=== PATIENT | male | born 1985 | race Caucasian/White ===

== ENCOUNTER 2024-04-20 23:22 | Inpatient (IN) | payer OTHER, SELFPAY ==
[2024-04-20 19:39] VITALS: BP 168/112
[2024-04-20 21:52] LABS: % Basophils 0.2 % (0-2); % Immature Granulocytes 0.5 % (0-0.5); % Lymphocytes 5.6 % (20.5-51.1); % Monocytes 6.5 % (1.7-9.3); % Neutrophils 87.2 % (42.2-75.2); Absolute Immature Granulocytes 0.1 10^3/uL (0-0.05); Absolute Lymphocytes 0.7 10^3/uL (1.2-3.4); Absolute Monocytes 0.8 10^3/uL (0.1-0.6); Absolute Neutrophils 11.1 10^3/uL (1.4-6.5); Hematocrit 40.3 % (39.0-52.0); Hemoglobin 13.8 g/dL (13.0-18.0); Mean Corp Hgb Conc. 34.2 g/dL (33.0-37.0); Mean Corpuscular Hgb 29.7 pg (27.0-31.0); Mean Corpuscular Volume 86.7 fL (80.0-94.0); Mean Platelet Volume 10.5 fL (7.4-10.4); Nucleated Red Blood Cells % 0 % (-); Platelet Count 183 10^3/uL (130-400); Red Blood Cell Count 4.65 10^6/uL (4.70-6.10); Red Cell Dist. Width 13.4 % (11.5-14.5); White Blood Cell Count 12.7 10^3/uL (4.8-10.8)
[2024-04-20] MEDS: VALIUM INJECTION 5 MG IV (21:59)
[2024-04-20 22:13] LABS: Blood Urea Nitrogen 19 mg/dl (9-20); Calcium 10.1 mg/dl (8.4-10.2); Carbon Dioxide 17 mmol/L (22-30); Chloride 108 mmol/L (98-107); Glucose 114 mg/dl (70-99); Sodium 137 mmol/L (135-145); eGFR > 60.00
[2024-04-20] MEDS: TYLENOL 1000 MG PO (22:17)
--- NOTE | 2024-04-20 22:24 | ED.GENMED ---
History of Present Illness
General
Chief Complaint: Flank Pain
Source: patient
Exam Limitations: none
Time Seen by Provider: 04/20/24 20:03
Nursing documentation reviewed up to this point in time: agreed with
Travel History
Have you had any contact with someone who has COVID-19?: No
Do you have any symptoms of coronavirus? Fever > 100 degrees, chills, cough, shortness of breath, sore throat, loss of taste or smell, muscle aches, or headache?: No
History of Present Illness
History of Present Illness:
Patient is a 38-year-old male who presents to the emergency department for increasing lower abdominal, bilateral flank and back pain after being unable to urinate since noon time. Patient denies any previous history of similar episodes. Patient
has some nausea but no vomiting or diarrhea. Patient denies fever or chills. Patient denies any recent illnesses or injuries. Patient states that he has nocturia x 2 but no hesitancy. Patient denies any hematuria or dysuria. Patient denies any
previous history of similar episodes. Patient denies any new medications.
Past History
Past History
ED Past Medical History: GERD and HTN
ED Past Surgical History: Orthopedic and Other (Umbilical hernia repair)
Social History
Tobacco: Non-smoker
Alcohol: None
Drug: None
Review of Systems
Review of Systems
All Other Systems: ROS reviewed and negative except as documented in HPI and ROS
Constitutional: Denies fever or chills
EENT: Reports no symptoms
Respiratory: Reports no symptoms
Cardiac: Reports no symptoms
ABD/GI: Reports abdominal pain; Denies nausea, vomiting, diarrhea or constipated
: Reports flank pain, difficulty voiding and urgency; Denies dysuria or bleeding
Musculoskeletal: Reports back pain
Skin: Reports no symptoms
Neurological: Reports no symptoms
Hematologic/Lymphatic: Reports no symptoms
Phy Exam
Physical Exam
Physical Exam:
Physical Exam
General: significant distress, alert and appropriate, obese, well hydrated
HENT: Normocephalic, supple with no lymphadenopathy, no thyromegaly
Eyes: Clear sclera, conjuctiva without injection
Heart: Regular rhythm and rate. No S3, S4. No murmur.
Lungs: No respiratory distress, no stridor, lung sounds clear and equal bilaterally
Abdomen: Soft, mild to moderate lower abdominal tenderness without guarding or rebound, BS good. Patient with a circumcised penis without lesion. Testicles down bilaterally
Neuro: Alert and oriented x 3, CN II - XII intact, no motor focality, no cerebellar dysfunction
Skin: no rash
Psychiatric: well kept. interactive and cooperative
Extremities: No edema, cyanosis, tenderness
Course
Orders/Labs/Results
Orders:
Orders
04/20/24 20:46
Lidocaine 2% [Lidocaine Uro-Jet 2%] 1 syringe .ROUTE .STK-MED ONE
04/20/24 21:21
Basic Metabolic Panel Urgent
Complete Blood Count/With Diff Urgent
Lactic Acid Q4H
Comment: CANCEL 2nd LACTIC ACID IF 1st LACTIC ACID IS LESS THAN 2
Blood Culture Q30M
AMARILYS Source: Blood/Venous
Specimen Description:
Blood Culture Q30M
AMARILYS Source: Blood/Venous
Specimen Description:
04/20/24 21:51
diazePAM [Valium Injection] 5 mg IV NOW STA
04/20/24 22:02
Acetaminophen [Tylenol] 1,000 mg .ROUTE .STK-MED ONE
04/20/24 22:16
Acetaminophen [Tylenol] 1,000 mg PO NOW STA
04/20/24 22:19
CMP [Comprehensive Metabolic Panel] Urgent
04/20/24 22:20
CefTRIAXone [Rocephin] 1,000 mg IV NOW STA
04/20/24 22:29
Consult Urology [UROLOGY CONSULT] Urgent
Consulting Provider: Eliceo Quispe
Was physician already notified: Yes
Comment: Bladder outlet obstruction
04/20/24 23:00
Flush (0.9% Sodium Chloride) [Flush (Nss)] See Dose Instructions IV PER PROTOCOL
04/20/24 23:07
Admit/Transfer Patient As Directed
Co-Sign Provider:
Level of Care: Inpatient admission
Assign to:: Medical/Surgical
Physician / Group: Hospitalist
Diagnosis: Bladder obstruction
Reason for Hospitalization: Bladder obstruction
Expected length of stay greater than two midnights?: Yes
ELOS- Estimated Length of Stay in days: 3
I certify the patient meets the requirements for IP care: Yes
04/20/24 23:08
Code Status As Directed
Resuscitation Status: Full Code
04/20/24 23:10
diazePAM [Valium Injection] 5 mg IV Q6HPRN PRN
04/20/24 23:15
Tamsulosin [Flomax] 0.4 mg PO DAILY
04/21/24 00:45
Activity As Directed
Activity Level: Ambulate
Pneumatic Compression Sleeves As Directed
Type: Knee high
Vital Signs As Directed
Frequency: Per unit guidelines
DX Deep Vein Thrombosis Video Routine
04/21/24 01:46
Lactic Acid Q4H
Comment: CANCEL 2nd LACTIC ACID IF 1st LACTIC ACID IS LESS THAN 2
04/21/24 05:46
Basic Metabolic Panel IN AM
Complete Blood Count/No Diff IN AM
04/21/24 Breakfast
NPO
Allow oral meds: Yes
Allow clear liquids: Sips of Clears
NPO with Ice Chips: Yes
NPO for procedure after (time): midnight
04/21/24 08:00
Atorvastatin [Lipitor] 20 mg PO DAILY
Dexamethasone [Decadron] 4 mg PO DAILY
Lisinopril [Zestril] 10 mg PO DAILY
Pantoprazole [Protonix] 40 mg PO DAILY
Abnormal Lab Results
04/20/24 04/20/24
21:21 22:19
WBC 12.7 H 10^3/uL
(4.8-10.8)
RBC 4.65 L 10^6/uL
(4.70-6.10)
MPV 10.5 H fL
(7.4-10.4)
Abs Immat Gran (auto) 0.1 H 10^3/uL
(0-0.05)
Absolute Neuts (auto) 11.1 H 10^3/uL
(1.4-6.5)
Absolute Lymphs (auto) 0.7 L 10^3/uL
(1.2-3.4)
Absolute Monos (auto) 0.8 H 10^3/uL
(0.1-0.6)
Neutrophils % 87.2 H %
(42.2-75.2)
Lymphocytes % 5.6 L %
(20.5-51.1)
Chloride 108 H mmol/L
(98-107)
Carbon Dioxide 17 L mmol/L 17 L mmol/L
(22-30) (22-30)
Glucose 114 H mg/dl 124 H mg/dl
(70-99) (70-99)
Lactic Acid 6.2 H* mmol/L
(0.7-2.0)
04/20/24 21:21
04/20/24 22:19
Vital Signs
Initial and Last Documented VS:
Initial Vital Signs
Temp Pulse Resp BP Pulse Ox
100.1 F 132 19 168/112 97
04/20/24 19:39 04/20/24 19:39 04/20/24 19:39 04/20/24 19:39 04/20/24 19:39
Last Documented Vital Signs
Temp Pulse Resp BP Pulse Ox
98.9 F 120 22 121/97 99
04/21/24 12:07 04/21/24 12:07 04/21/24 12:07 04/21/24 12:07 04/21/24 12:07
*Pulse Oximetry
Patient hypoxic: no
*EKG
Interpreted by ED Provider?: NA
*Inspector Barrel Interpretation
Rate: Inspector Barrel- N/A
*Critical Care Note
Total Time (30-74mins, 75-104mins- exclusive of procedures): Not Applicable
Update Note
Update Note:
Multiple attempts to try to pass the catheter whether to do a cuday or with a guide or just a plain catheter followed by trying to use filiforms was unsuccessful. Patient did have significant bleeding from the urethra and was passing some urine.
Patient had this done under sterile conditions. Patient did have some spontaneous urination. However still symptomatic. Patient then developed chills and rigors with a temp of 101. Patient was placed on antibiotics. Urology was consulted.
ED Attending Note
-
Portions of this chart may have been created with voice recognition software.� Occasional wrong word or��sound alike� substitutions may have occurred due to the inherent limitations of voice recognition software.
Discharge Plan
Departure
Patient Disposition: Admit
Date of Disposition: 04/20/24
Time of Disposition: 22:32
Admit to: Med/Surg
Admit to doctor: Hospitalist
Presentation/result/management discussed w/ accepting MD/DO: Urology
Patient with high blood pressure during this ER visit?: Yes
Condition: Serious
Covid-19: Not Applicable
Discharge Problem:
Fever and chills, Bladder outlet obstruction, Hematuria
Interventions
Interventions:
*Risk Screen - Suicide Last Done: 04/20/24 19:39
*General Assessment Last Done: 04/20/24 19:39
*Neglect/Abuse Screening Last Done: 04/20/24 19:39
ED- Fall Risk Assessment Last Done: 04/20/24 21:27
*ED COVID-19 Vaccine History Last Done: 04/20/24 19:39
*Nursing Disposition Last Done: 04/21/24 00:41
RV-Kyarym-Udvaepmphh Assessment Last Done: 04/20/24 23:29
ED-Male Genitourinary Assessment Last Done: 04/20/24 23:30
Discharge Date and Time
Discharge Date/Time: 04/21/24 00:42
[2024-04-20 22:55] LABS: ALT (SGPT) 31 U/L (0-50); AST (SGOT) 27 U/L (17-59); Albumin 4.8 g/dl (3.5-5.0); Alkaline Phosphatase 101 U/L (38-126); Blood Urea Nitrogen 19 mg/dl (9-20); Calcium 10.2 mg/dl (8.4-10.2); Carbon Dioxide 17 mmol/L (22-30); Chloride 104 mmol/L (98-107); Glucose 124 mg/dl (70-99); Potassium 4.6 mmol/L (3.5-5.1); Sodium 140 mmol/L (135-145); Total Bilirubin 0.7 mg/dl (0.2-1.3); Total Protein 8.1 g/dl (6.3-8.2); eGFR > 60.00
--- NOTE | 2024-04-20 22:56 | W.PN.URO.CBU ---
Today's Communication / Plan
-
Attempted passage of a ureteral guidewire in the hopes of placing a Councill catheter
Guidewire would not navigate a course into the urinary bladder
Based on the suspected urethral trauma and the fact that he was able to void, no further attempts at catheter placement were made at the bedside
Assessment / Plan
-
Urine retention: patient voided volitionally since ER attempts at Garrett placement
Possible acute bacterial prostatitis
Possible urethral stricture disease
Diagnosis
-
Date of Service: April 20, 2024
-
Patient Diagnosis:
Urine retention
Dysuria x 4-6 weeks
---
Patient presented to the ER this evening with c/o the inability to urinate for roughly 7-8 hours: he was bladder scanned for a volume of 800 ml
He has never before suffered from the inability to void
He does mention that for the past 4-6 weeks he has had dysuria
No fever
No chills
No gross hematuria
His past urologic history is essentially unremarkable
---
Attempt at Garrett catheter placement by the emergency room staff included Coude catheter, catheter guide and filiforms and followers
Unfortunately these attempts were unsuccessful
Fortunately he was just able to void volitionally with a good stream and feels he completely emptied his bladder
Subjective
-
Dysuria
Objective
-
Vital Signs
Temp Pulse Resp BP Pulse Ox
101.4 F H 132 19 168/112 97
04/20/24 22:20 04/20/24 19:39 04/20/24 19:39 04/20/24 19:39 04/20/24 19:39
Laboratory Results
04/20/24 21:21
04/20/24 22:19
Review of Systems
-
Constitutional: No Symptoms
Respiratory: No Symptoms
Cardiac: No Symptoms
Abdomen/GI: No Symptoms
: Dysuria and Difficulty Voiding
Neurological: No Symptoms
Physical Exam
-
Abdomen - soft, non-tender, no SP pain or fullness, bladder non-palpable
Genitalia - normal with gross blood per meatus
Skin - warm & dry with no rash
Neuro - AOx3, no motor deficits
Counseling
-
Patient will be admitted to Med/Surg
He will be maintained on diazepam 5mg IV Q 6 ours
He will be begun on tamsulosin 0.4mg daily
He will be NPO after MN tonight in the event he needs surgical intervention/cystoscopy
---
Discussed with Hospitalist
--- NOTE | 2024-04-20 22:59 | HPS.HSE ---
Family Physician
-
Family Physician: Sahil Downs
Chief Complaint
-
Inability to urinate
History of Present Illness
38-year-old man comes in with increasing lower abdominal, bilateral flank and back pain after being unable to urinate since noon time. He denies any previous history of similar episodes. He has some nausea but no vomiting or diarrhea, no fever or
chills, no recent illnesses or injuries. He states that he has nocturia x 2 but no hesitancy. He denies any hematuria or dysuria. At the time of my interview, he had just urinated 700 cc after attempts at placing a lal. Unfortunately he also
had a new fever and rigors. No h/o anabolic steroid use.
Medical History
Past Medical History
Past Medical History: Reports Other
Additional Past Medical History:
GERD
essential HTN
Umbilical hernia repair
Past Surgical History: Reports Other
Additional Past Surgical History:
See above
Social History
Tobacco: Non-smoker
Alcohol: None
Drug: None
Family History
Family History: Not pertinent
Allergies / Home Medications
Allergies reflects when Allergies were last updated in [facility].
Home Medications with original date entered in [facility]
Allergy/Medication List:
Allergies
Allergy/AdvReac Type Severity Reaction Status Date / Time
sumatriptan [From Imitrex] AdvReac Chest pain Verified 04/20/24 19:39
Home Medications
lisinopril 10 mg tablet (Zestril) 10 mg PO DAILY Blood pressure 05/15/22
omeprazole 40 mg capsule,delayed release 40 mg PO DAILY Gastrointestinal issue 05/15/22
atorvastatin 20 mg tablet 20 mg PO DAILY High cholesterol 06/09/22
dexamethasone 4 mg tablet (Decadron) 4 mg PO DAILY Anti-inflammatory 06/09/22
Review of Systems
-
History Source: Patient
A 12 point ROS was completed and negative except as noted: Yes
Physical Exam
Vital Signs
Vital Signs
Temp Pulse Resp BP Pulse Ox
101.4 F H 132 19 168/112 97
04/20/24 22:20 04/20/24 19:39 04/20/24 19:39 04/20/24 19:39 04/20/24 19:39
Physical Exam
General: Well Developed, Well Nourished and Comfortable
HEENT: No Ptosis, Nose Appears Normal and Ears Appear Normal
Respiratory: Clear
Cardiac: S1/S2 and Regular Rhythm
GI: Soft, Non Tender and Non Distended
Musculoskeletal: No Clubbing, No Cyanosis and No Edema
Skin: Warm and Dry; No Rash or Jaundice
Psych: Calm
Laboratory Results
-
04/20/24 21:21
04/20/24 22:19
Laboratory Results
Total Bilirubin 0.7 mg/dl (0.2-1.3) 04/20/24 22:19
AST 27 U/L (17-59) 04/20/24 22:19
ALT 31 U/L (0-50) 04/20/24 22:19
Alkaline Phosphatase 101 U/L (38-126) 04/20/24 22:19
Data Reviewed
-
Lab Data: Labs Reviewed by me
Impression/Plan
-
IMPRESSION:
38 man with inability to urinate, likely from a bladder obstruction, now with fever and WBC increase.
PLAN:
1. Bladder obstruction - urology consult appreciated (please see urology note)
Overnight patient will continue with
Valium
Flomax
IV antibiotics
Urology to re-eval in am and see if further interventions needed
2. Continue treatment for HTN and GERD
Full code
VCD for DVTp
[2024-04-20 23:03] LABS: Lactic Acid 6.2 mmol/L (0.7-2.0)
[2024-04-20] MEDS: ROCEPHIN 1000 MG IV (23:13)
[2024-04-20 23:27] VITALS: BP 134/60
[2024-04-20] MEDS: FLOMAX 0.400000000000000022 MG PO (23:57)
[2024-04-21] VITALS (12 sets, daily range): BP systolic 78–121; BP diastolic 42–97; BMI 44.9
[2024-04-21 01:09] LABS: Glucose - Point of Care 119 mg/dl (70-99)
[2024-04-21] MEDS: NSS 500 IV (01:14)
--- NOTE | 2024-04-21 01:15 | W.PN.UPDATE ---
Update Note
Progress Note Update
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 Patient had received Valium 5mg and Flomax 0.4mg, Will order 500 CC I V bolus, NSS 100cc/hr, Lactic acid AM.
update BP 95/49 101
[2024-04-21 02:14] LABS: Lactic Acid 4.9 mmol/L (0.7-2.0)
[2024-04-21] MEDS: NSS 1000 IV ×4 (02:23→20:28)
--- NOTE | 2024-04-21 02:30 | PTCARENOTE ---
Patient arrived on unit @0040 via stretcher from ED, ambulate to bed with RW with standby assist due to c/o weakness. Patient AAOX3, denies any pain, c/o lightheadedness and observed to be diaphoretic. Manual BP 78/44 HR 113, BS 119, afebrile. CYTOLOGY MANAGER
made aware, new order received for bolus 500 mls followed by maintenance fluids. BP after 500 ml bolus is 95/49 HR 101, patient has no further complaints, will continue to follow plan of care.
[2024-04-21 06:58] LABS: Hematocrit 32.9 % (39.0-52.0); Hemoglobin 11.4 g/dL (13.0-18.0); Mean Corp Hgb Conc. 34.7 g/dL (33.0-37.0); Mean Corpuscular Hgb 30.3 pg (27.0-31.0); Mean Corpuscular Volume 87.5 fL (80.0-94.0); Mean Platelet Volume 11.5 fL (7.4-10.4); Platelet Count 145 10^3/uL (130-400); Red Blood Cell Count 3.76 10^6/uL (4.70-6.10); Red Cell Dist. Width 13.9 % (11.5-14.5); White Blood Cell Count 11.8 10^3/uL (4.8-10.8)
[2024-04-21 07:13] LABS: Blood Urea Nitrogen 25 mg/dl (9-20); Calcium 9.1 mg/dl (8.4-10.2); Carbon Dioxide 17 mmol/L (22-30); Chloride 105 mmol/L (98-107); Estimated Creatinine Clearance 78 ml/min; Glucose 90 mg/dl (70-99); Potassium 4.3 mmol/L (3.5-5.1); Sodium 139 mmol/L (135-145); eGFR 46.02
[2024-04-21] MEDS: PROTONIX PO (08:04)
[2024-04-21] MEDS: LIPITOR 20 MG PO (08:07)
[2024-04-21] MEDS: FLOMAX 0.400000000000000022 MG PO (08:07)
[2024-04-21 08:11] LABS: Lactic Acid 4.5 mmol/L (0.7-2.0)
--- NOTE | 2024-04-21 09:40 | W.PN.HOSP.TC ---
Today's Communication/Plan
-
.
Assessment / Plan
Assessment / Plan
Physical Exam
General: Well Developed, Well Nourished and Comfortable
HEENT: No Ptosis, Nose Appears Normal and Ears Appear Normal
Respiratory: Clear
Cardiac: S1/S2 and Regular Rhythm
GI: Soft, Non Tender and Non Distended. Mild left CV tenderness.
Musculoskeletal: No Clubbing, No Cyanosis and No Edema
Skin: Warm and Dry; No Rash or Jaundice
Psych: Calm
38 man with inability to urinate,
# Septic shock/ severe sepsis with lactic acidosis
Source UTI, suspect pyelonephritis
Stat IV bolus of IVF
Change IV Abx to IV cefepime
c/w IVF
Order stat renal US, will d/w radiologist whether to do US or CT urogram as safe and better
d/w urologist, c/w Flomax, ABx for now
Await blood cultures
Maintain tele. Hold MINOO
Send for urinalysis and culture( stat)
Appreciate urology help
# Primary hTN
Hold MINOO due to hypotension
# PRASANTH
suspect related to sepsis, hypotension,
DO Renal US or CT ( await radiologist to call back)
Bladder scan is ordered
Send for urine testing,
c/w IVF
Monitor BMP
# Obesity
BMP 44
# History of ITP. Monitor plts level
He has hematuria
#History of GERD
#DVT prophylaxis
Total critical time spent to see the patient, examine the patient on the floor, review data and lab results, discuss treatment plan with patient, consultants nursing staff around 75 minutes
Anticipated Discharge: > 48 hours
Subjective/Interval History
-
Date of Service: April 21, 2024
No flank pain but reports hematuria
Objective Data
-
Labs:
Laboratory Results
04/20/24 04/20/24 04/20/24
21:21 21:49 22:19
WBC 12.7 H
Hgb 13.8
Hct 40.3
Plt Count 183
Sodium 137 Cancelled 140
Potassium Cancelled 4.6
Chloride 108 H Cancelled 104
Carbon Dioxide 17 L Cancelled 17 L
BUN 19 Cancelled 19
Creatinine 0.9 Cancelled 1.2
Glucose 114 H Cancelled 124 H
Calcium 10.1 Cancelled 10.2
Total Bilirubin Cancelled 0.7
AST Cancelled 27
ALT Cancelled 31
Alkaline Phosphatase Cancelled 101
04/21/24
05:46
WBC 11.8 H
Hgb 11.4 L
Hct 32.9 L
Plt Count 145 D
Sodium 139
Potassium 4.3
Chloride 105
Carbon Dioxide 17 L
BUN 25 H
Creatinine 1.9 H
Glucose 90
Calcium 9.1
Total Bilirubin
AST
ALT
Alkaline Phosphatase
Vital Signs:
Vital Signs
Temp Pulse Resp BP Pulse Ox
97.8 F 115 16 85/45 94
04/21/24 07:00 04/21/24 08:01 04/21/24 07:00 04/21/24 08:01 04/21/24 07:00
I&O
04/20/24 04/21/24 04/22/24
06:59 06:59 06:59
Intake Total 925 / 925
Output Total 180 / 180
Balance 745 / 745
--- NOTE | 2024-04-21 10:00 | PTCARENOTE ---
Pt had bp of 85/45 this am. RN reached out to hospitalist through tiger text about holding am lisinopril and obtained order for 1,000 ml NS bolus.
--- NOTE | 2024-04-21 10:28 | W.PN.URO.CBU ---
Today's Communication / Plan
-
Continue IV antibiotics
Await blood and urine culture results
Bladder scan to confirm adequate bladder emptying
Assessment / Plan
-
Urine retention: patient continues to void volitionally
Possible acute bacterial prostatitis
Possible urethral stricture disease
Diagnosis
-
Date of Service: April 21, 2024
-
Patient Diagnosis:
Urine retention
Dysuria x 4-6 weeks
---
Patient presented to the ER this 04/20/24 with c/o the inability to urinate for roughly 7-8 hours: he was bladder scanned for a volume of 800 ml
He has never before suffered from the inability to void
He does mention that for the past 4-6 weeks he has had dysuria
No fever
No chills
No gross hematuria
His past urologic history is essentially unremarkable
---
Attempt at Garrett catheter placement by the emergency room staff included Coude catheter, catheter guide and filiforms and followers
Unfortunately these attempts were unsuccessful
Fortunately he was just able to void volitionally with a good stream and feels he completely emptied his bladder
He has continued to void effectively since then, with decreasing dysuria and hematuria
Subjective
-
No SP pain or pressure
Dysuria resolving
Objective
-
Vital Signs
Temp Pulse Resp BP Pulse Ox
97.8 F 102 16 108/56 94
04/21/24 07:00 04/21/24 10:19 04/21/24 07:00 04/21/24 10:19 04/21/24 07:00
Intake and Output
04/20/24 04/21/24 04/22/24
06:59 06:59 06:59
Intake Total 925 / 925
Output Total 180 / 180
Balance 745 / 745
Intake:
IV fluids (Total) 925 / 925
Output:
Urine, Voided 180 / 180
Laboratory Results
04/21/24 05:46
04/21/24 05:46
Review of Systems
-
Constitutional: No Symptoms
Respiratory: No Symptoms
Cardiac: No Symptoms
Abdomen/GI: No Symptoms
: Dysuria and Bleeding
Neurological: No Symptoms
Physical Exam
-
General - well nourished, no acute distress
Abdomen - soft, non-tender, no CVAT
Genitalia - normal
Counseling
-
Bladder scan
Repeat BMP in AM 04/22/24
[2024-04-21 12:26] LABS: Urine Albumin 3+ (Neg - Trace); Urine Bilirubin Negative (Negative); Urine Character Bloody (Clear); Urine Color Red; Urine Glucose Negative (Negative); Urine Ketone 1+ (Negative); Urine Leukocyte Trace (Negative); Urine Nitrite Negative (Negative); Urine Occult Blood 4+ (Negative); Urine Specific Gravity 1.015 (<1.030); Urine Urobilinogen Negative (Neg - 1+); Urine pH 6.5 (5.0-9.0)
--- NOTE | 2024-04-21 12:59 | PTCARENOTE ---
[facility] text to hospitalist that patient began to visibly shake in bed, he denied pain or 'fever chills'. Staff took his VS- they were HR 120, bp 127/97, RR 18, SpO2 99% on RA. STAT urine culture obtained per order, conveyor monitor applied to
patient, and MD called into room to update patient on progression of sepsis/plan of care. MD also updated pt spouse. Blood cultures positive for gram positive cocci in chains.
[2024-04-21 13:32] LABS: Urine Squamous Cell 0-2 /LPF (Few)
[2024-04-21 13:33] LABS: Urine Bacteria Few (Negative); Urine Red Blood Cell >100 /HPF (0-2)
[2024-04-21] MEDS: STERILE WATER FOR INJECTION 10 ML IV (13:57)
[2024-04-21] MEDS: MAXIPIME 2000 MG IV (13:57)
--- NOTE | 2024-04-21 16:03 | CON.ID ---
Consultation
-
Date/Time Consultation Requested: April 21, 2024 1523
Date/Time Consultation Performed: April 21, 2024 1604
Requesting Provider: Dr. Michelle Escobar
Performing Provider: Dr. Bobbi Bolden
Reason for Consultation: Bacteremia, Aerococcus UTI
Chief Complaint / Past History
Chief Complaint
Unable to void
History of Present Illness
38-year-old male with history of hypertension, who started having dysuria about 2 weeks ago with intermittent fever, pelvic and back pain. However yesterday he was not able to void at all with significant bladder pain radiating to the back. Also
with fevers and chills. He came to the ED. He was febrile 101.4, white count 12.7, lactic acid 6.2. He was tachycardic. Bladder scan showed 800 cc urine. ED attempted to place Garrett for about an hour but failed. He then started voiding on his
own, gross hematuria. He was rigoring in the ED. Urology attempted to place catheter later but also failed. He was started on ceftriaxone in ED. However today's blood cultures are positive for gram-positive cocci in chains, urine culture
Aerococcus. Antibiotic changed to ampicillin. Patient reports no history of UTIs for difficulty with urination. Urology suspected urethral stricture. The bladder pressure and back pain have resolved. He still has dysuria.
Past History
Additional Past Medical History:
Hypertension
Hx ITP s/p Rituxan (2021)
Umbilical hernia repair
Class III obesity BMI 45
Allergy History:
sumatriptan [From Imitrex] Adverse Reaction (Verified 04/20/24 19:39)
Chest pain
Medications Reviewed: Yes
Current Antibiotics:
S/p ceftriaxone
Ampicillin 2gIV q6
Social History
Tobacco: Non-Smoker
Alcohol: None
Drug: None
Employment: Employed ([employer])
Family History
Family History: Not Pertinent
Review of Systems
Review of Systems
General: Fever, Chills and Change in Appetite
HEENT: Negative Sinus Problems, Headache or Pharyngitis
Cardiovascular: Negative Chest Pain or Dyspnea
Respiratory: Negative Dyspnea or Cough
Gasteroenterology: Other (no diarrhea); Negative Nausea or Vomiting
Genital / Urological: Dysuria
Endocrine: Weakness
Skin / Hair / Nails: Negative Rash
Neurological: Negative Headache or Dizziness
All systems: All other systems were reviewed and were negative
Vital Signs
Temp Pulse Resp BP Pulse Ox
99.6 F 112 18 100/54 98
04/21/24 15:00 04/21/24 15:00 04/21/24 15:00 04/21/24 15:00 04/21/24 15:00
Selected Entries
04/20/24
23:27
Temp 102.3 F H
Physical Exam
Physical Exam
Constitutional: No Acute Distress and Obese
Eyes: No Conjunctival Hemorrhage and Sclera Anicteric
Cardiovascular: Regular Rate and S1/S2
Pulmonary: Clear
Gastrointestinal: Soft, Non Tender, Non Distended and Normal Bowel Sounds
Genito-Urinary: Negative Suprapubic Tenderness or CVA Tenderness
Extremities: Negative Edema
Neurological: AO x 3
Lab / Diagnostic Study Results
04/21/24 05:46
04/21/24 05:46
Abs Immat Gran (auto) 0.1 10^3/uL (0-0.05) H 04/20/24 21:21
Absolute Neuts (auto) 11.1 10^3/uL (1.4-6.5) H 04/20/24 21:21
Absolute Lymphs (auto) 0.7 10^3/uL (1.2-3.4) L 04/20/24 21:21
Absolute Monos (auto) 0.8 10^3/uL (0.1-0.6) H 04/20/24 21:21
Absolute Basos (auto) 0.0 10^3/uL (0-0.2) 04/20/24 21:21
Immature Gran % 0.5 % (0-0.5) 04/20/24 21:21
Neutrophils % 87.2 % (42.2-75.2) H 04/20/24 21:21
Lymphocytes % 5.6 % (20.5-51.1) L 04/20/24 21:21
Monocytes % 6.5 % (1.7-9.3) 04/20/24 21:21
Eosinophils % 0.0 % (0-6) 04/20/24 21:21
Basophils % 0.2 % (0-2) 04/20/24 21:21
Lactic Acid 4.5 mmol/L (0.7-2.0) H* 04/21/24 07:45
Ur Squamous Epith Cells 0-2 /LPF (Few) 04/21/24 11:58
Microbiology Results
Micro:
04/21/24 11:58 Urine Culture - Pending
Urine
04/20/24 21:21 Blood Culture - Preliminary
Blood/Venous Positive culture in progress
Gram Stain - Preliminary
04/20/24 21:21 Blood Culture - Preliminary
Blood/Venous Positive culture in progress
Gram Stain - Preliminary
04/21/24 Renal US: Right kidney overall slightly larger in size than left kidney. No findings to confirm renal mass, calculus or collecting system dilatation bilaterally.
Assessment / Plan
# Complicated Aerococcus UTI
#Gram-positive cocci in chains bacteremia, suspect Aerococcus from source.
#Bladder outlet obstruction
#Severe sepsis with fever, leukocytosis, elevated lactic acid, PRASANTH
-Agree with change of antibiotic to IV ampicillin.
-To repeat blood cultures tomorrow morning.
-Follow temperature and white count
[2024-04-21] MEDS: AMPICILLIN 108 MG IV ×2 (16:20→21:39)
[2024-04-22 03:00] VITALS: BP 101/50
[2024-04-22] MEDS: AMPICILLIN 108 MG IV ×4 (03:47→22:04)
[2024-04-22] MEDS: NSS 1000 IV (05:28)
[2024-04-22 05:42] LABS: Hematocrit 27.7 % (39.0-52.0); Hemoglobin 9.5 g/dL (13.0-18.0); Mean Corp Hgb Conc. 34.3 g/dL (33.0-37.0); Mean Corpuscular Hgb 29.6 pg (27.0-31.0); Mean Corpuscular Volume 86.3 fL (80.0-94.0); Mean Platelet Volume 10.9 fL (7.4-10.4); Platelet Count 111 10^3/uL (130-400); Red Blood Cell Count 3.21 10^6/uL (4.70-6.10); Red Cell Dist. Width 14.3 % (11.5-14.5); White Blood Cell Count 8.6 10^3/uL (4.8-10.8)
[2024-04-22 06:26] LABS: Blood Urea Nitrogen 21 mg/dl (9-20); Calcium 8.6 mg/dl (8.4-10.2); Carbon Dioxide 20 mmol/L (22-30); Chloride 108 mmol/L (98-107); Estimated Creatinine Clearance > 125 ml/min; Glucose 101 mg/dl (70-99); Potassium 3.8 mmol/L (3.5-5.1); Sodium 136 mmol/L (135-145); eGFR > 60.00
[2024-04-22 07:00] VITALS: BP 110/59
--- NOTE | 2024-04-22 08:25 | W.PN.URO.CBU ---
Today's Communication / Plan
-
Cleared for discharge from standpoint
Awaiting multiple blood culture results
Will need outpatient cystoscopy
Assessment / Plan
-
Urine retention: patient continues to void volitionally
Possible acute bacterial prostatitis: gram positive cocci in blood
Possible urethral stricture disease
Diagnosis
-
Date of Service: April 22, 2024
-
Urine retention
Dysuria x 4-6 weeks
PRASANTH: resolved (likely pre-renal)
Bacteremia
---
Patient presented to the ER this 04/20/24 with c/o the inability to urinate for roughly 7-8 hours: he was bladder scanned for a volume of 800 ml
He has never before suffered from the inability to void
He does mention that for the past 4-6 weeks he has had dysuria
No fever
No chills
No gross hematuria
His past urologic history is essentially unremarkable
---
Attempt at Garrett catheter placement by the emergency room staff included Coude catheter, catheter guide and filiforms and followers
Unfortunately these attempts were unsuccessful
Fortunately he was just able to void volitionally with a good stream and feels he completely emptied his bladder
He has continued to void effectively since then, with decreasing dysuria and hematuria
Renal US 04/21/24 failed to identify any hydronephrosis
Subjective
-
Feels back to baseline
No dysuria
No gross hematuria
Objective
-
Vital Signs
Temp Pulse Resp BP Pulse Ox
98.0 F 95 18 101/50 97
04/22/24 03:00 04/22/24 03:00 04/22/24 03:00 04/22/24 03:00 04/22/24 03:00
Intake and Output
04/21/24 04/22/2424
06:59 06:59 06:59
Intake Total 925 / 925 4626 / 4626
Output Total 180 / 180 1460 / 1460
Balance 745 / 745 3166 / 3166
Intake:
Oral fluids 960 / 960
IV fluids (Total) 925 / 925 3450 / 3450
IV piggybacks 216 / 216
Output:
Urine, Voided 180 / 180 1460 / 1460
Other:
Number of approximated MODERATE 1
amounts of urine
Laboratory Results
04/22/24 05:23
04/22/24 05:23
Review of Systems
-
Constitutional: No Symptoms
Respiratory: No Symptoms
Cardiac: No Symptoms
Abdomen/GI: No Symptoms
: No Symptoms
Neurological: No Symptoms
Physical Exam
-
General - well nourished, no acute distress
Abdomen - soft, non-tender
Genitalia - normal
Skin - warm & dry with no rash
Neuro - AOx3, no motor deficits
Counseling
-
Will need outpatient cystoscopy
[2024-04-22] MEDS: FLOMAX 0.400000000000000022 MG PO (08:52)
[2024-04-22] MEDS: PROTONIX 40 MG PO (08:52)
[2024-04-22] MEDS: LIPITOR 20 MG PO (08:52)
[2024-04-22] MEDS: NSS IV (09:04)
--- NOTE | 2024-04-22 11:03 | W.PN.HOSP.TC ---
Addendum entered and electronically signed by Fitz Escobar MD 04/22/24 11:12:
Addendum
Acute blood loss anemia, mild, monitor
End
Original Note:
Today's Communication/Plan
-
.
Assessment / Plan
Assessment / Plan
Physical Exam
General: Well Developed, Well Nourished and Comfortable
HEENT: No Ptosis, Nose Appears Normal and Ears Appear Normal
Respiratory: Clear
Cardiac: S1/S2 and Regular Rhythm
GI: Soft, Non Tender and Non Distended. Mild left CV tenderness.
Musculoskeletal: No Clubbing, No Cyanosis and No Edema
Skin: Warm and Dry; No Rash or Jaundice
Psych: Calm
38 man with inability to urinate,
# Septic shock/ severe sepsis with lactic acidosis
Source UTI, suspect pyelonephritis
Good clinical improvement in last 24 hours. Afebrile. WBC normalized
No need for more IVF, he is tolerating diet well, stable BP this morning
Changed IV Abx to IV Ampicillin per culture result.
s/p IVF
Renal US no hydronephrosis
c/w Flomax, ABx for now
Appreciate urology & ID help
# Bacteremia with gram positive cocci, likely source
repeat blood culture 04/22
c/w IV Ampicillin
# Primary hTN
Hold MINOO due to hypotension
# PRASANTH due to sepsis, hypotension,
Creatinine improved.
# Metabolic acidosis, mild, improving.
# Obesity
BMP 44
# History of ITP. Monitor plts level
He has hematuria
#History of GERD
#DVT prophylaxis
Total time spent to see the patient, examine the patient on the floor, review data and lab results, discuss treatment plan with patient, his partner, nursing staff around 59 minutes
Anticipated Discharge: 24 - 48 hours
Subjective/Interval History
-
Date of Service: April 22, 2024
He is feeling better
He asked me to update his partner
Objective Data
-
Labs:
Laboratory Results
04/22/24
05:23
WBC 8.6
Hgb 9.5 L
Hct 27.7 L
Plt Count 111 L D
Sodium 136
Potassium 3.8
Chloride 108 H
Carbon Dioxide 20 L
BUN 21 H
Creatinine 0.9
Glucose 101 H
Calcium 8.6
Vital Signs:
Vital Signs
Temp Pulse Resp BP Pulse Ox
98.1 F 93 17 110/59 97
04/22/24 07:00 04/22/24 07:00 04/22/24 07:00 04/22/24 07:00 04/22/24 07:00
I&O
04/21/24 04/22/24 04/23/24
06:59 06:59 06:59
Intake Total 925 / 925 4626 / 4626
Output Total 180 / 180 1460 / 1460
Balance 745 / 745 3166 / 3166
[2024-04-22 12:00] VITALS: BP 109/55
[2024-04-22] MEDS: VALIUM INJECTION 5 MG IV (14:04)
--- NOTE | 2024-04-22 14:26 | W.PN.ID1 ---
Date of Service
Date of Service: April 22, 2024
Today's Communication
Continue ampicillin.
Assessment / Plan
# Complicated Aerococcus UTI
#Gram-positive cocci in chains bacteremia, prelim; Strep species
#Bladder outlet obstruction
#s/p Severe sepsis
-Continue IV ampicillin (d2)
-Follow repeat blood cultures
-Await final identification of 'Strep species'.
-Follow temperature and white count
Chief Complaint
-: UTI and Bacteremia
Subjective / Review of Systems
He is upset that he is having problems voiding again just know.
Vital Signs / Physical Exam
Vital Signs
Vital Signs
Temp Pulse Resp BP Pulse Ox
98.2 F 93 16 109/55 97
04/22/24 12:00 04/22/24 12:00 04/22/24 12:00 04/22/24 12:00 04/22/24 12:00
Physical Exam
Cardiovascular: Regular Rate and S1/S2
Pulmonary: Clear
Gastrointestinal: Soft, Non Tender and Non Distended
Genito-Urinary: Negative CVA Tenderness
Objective Data
Lab Data
Lab Results
04/22/24 05:23
04/22/24 05:23
Estimated Creat Clear > 125 ml/min 04/22/24 05:23
Lactic Acid 4.5 mmol/L (0.7-2.0) H* 04/21/24 07:45
Total Bilirubin 0.7 mg/dl (0.2-1.3) 04/20/24 22:19
AST 27 U/L (17-59) 04/20/24 22:19
ALT 31 U/L (0-50) 04/20/24 22:19
Alkaline Phosphatase 101 U/L (38-126) 04/20/24 22:19
Most recent labs reviewed.
Micro Results:
04/21/24 11:58 Urine Culture - Preliminary
Urine
04/20/24 21:21 Blood Culture - Preliminary
Blood/Venous Streptococcus species
Gram Stain - Final
04/20/24 21:21 Blood Culture - Preliminary
Blood/Venous Streptococcus species
Gram Stain - Final
04/22/24 05:23 Blood Culture - Pending
Blood/Venous
04/21/24 Renal US: Right kidney overall slightly larger in size than left kidney. No findings to confirm renal mass, calculus or collecting system dilatation bilaterally.
Care Review
Plan reviewed with: Physician (Dr. Escobar)
[2024-04-22 15:00] VITALS: BP 138/87
--- NOTE | 2024-04-22 15:32 | CM ---
Alert awake oriented patient who lives with his Kirsten who lives in a 2 story home with 1 step to enter and 5 steps to bed and bathroom. He is independent in driving and in all activities of daily living.No adaptive devices.He was offered Vn he
declined need.
No VN hx / No SNF history
Pharmacy [facility]
PCP DR Sahil Downs
PLAN Home Declined VN
--- NOTE | 2024-04-22 18:01 | W.PN.UPDATE ---
Update Note
Progress Note Update
Patient evaluated at bedside for urinary retention
Unable to pass a coude catheter or wire without significant resistance around bulbar urethra
Patient prepped supine for bedside cystoscopy
Flexible cystoscopy inserted per urethra and a very narrow bulbar urethral stricture was noted, approx 5Fr diameter, with traumatic false passage anterior to the true lumen
Guide wire was placed through stricture into the bladder
Jasmin dilators were used to sequentially dilate the urethra from 10Fr to 18Fr
16Fr kashia catheter placed over the wire and balloon inflated
Patient tolerated procedure well
- 1400cc clear yellow urine was drained
- Maintain lal catheter at least 5 days
- Will need outpatient follow up and cystoscopy to eval for likely stricture recurrence and more definitive management
CPT codes: 64394, 43546, 25399
[2024-04-22 19:35] VITALS: BP 129/73
[2024-04-22 23:15] VITALS: BP 126/70
[2024-04-23] MEDS: AMPICILLIN 108 MG IV ×2 (03:07→10:07)
[2024-04-23 03:20] VITALS: BP 119/65
[2024-04-23 06:04] VITALS: BMI 44.8
[2024-04-23 07:30] VITALS: BP 133/74
[2024-04-23] MEDS: PROTONIX 40 MG PO (07:41)
[2024-04-23] MEDS: LIPITOR 20 MG PO (07:42)
[2024-04-23] MEDS: FLOMAX 0.400000000000000022 MG PO (07:42)
--- NOTE | 2024-04-23 09:00 | W.PN.URO.CBU ---
Today's Communication / Plan
-
Keep Garrett 4-5 days
Will follow as outpatient to discuss future management of urethral stricture
Assessment / Plan
-
Urine retention: proximal urethral stricture diagnosed by bedside cystoscopy. s/p dilation with Garrett catheter placement
Possible acute bacterial prostatitis: gram positive cocci in blood
Diagnosis
-
Date of Service: April 23, 2024
-
Urine retention
Dysuria x 4-6 weeks
PRASANTH: resolved (likely pre-renal)
Bacteremia
---
Patient presented to the ER this 04/20/24 with c/o the inability to urinate for roughly 7-8 hours: he was bladder scanned for a volume of 800 ml
He has never before suffered from the inability to void
He does mention that for the past 4-6 weeks he has had dysuria
No fever
No chills
No gross hematuria
His past urologic history is essentially unremarkable
---
Attempt at Garrett catheter placement by the emergency room staff included Coude catheter, catheter guide and filiforms and followers
Unfortunately these attempts were unsuccessful
Fortunately he was just able to void volitionally with a good stream and feels he completely emptied his bladder
He has continued to void effectively since then, with decreasing dysuria and hematuria
Renal US 04/21/24 failed to identify any hydronephrosis
---
Recurrent retention midday 04/22/24 prompted bedside cystoscopy with urethral dilation of a recognized 5Fr proximal urethral stricture. Garrett catheter drainage of the bladder recovered 1400 ml of clear urine immediately
Subjective
-
Comfortable
Little catheter bother
Objective
-
Vital Signs
Temp Pulse Resp BP Pulse Ox
97.5 F 79 18 133/74 99
04/23/24 07:30 04/23/24 07:30 04/23/24 07:30 04/23/24 07:30 04/23/24 07:30
Intake and Output
04/22/24 04/23/24 04/24/24
06:59 06:59 06:59
Intake Total 4626 / 4626 970 / 970
Output Total 1460 / 1460 5300 / 5300
Balance 3166 / 3166 -4330 / -4330
Intake:
Oral fluids 960 / 960 760 / 760
IV fluids (Total) 3450 / 3450 10 10
IV piggybacks 216 / 216 200 / 200
Output:
Urine, Garrett 4800 / 4800
Urine, Voided 1460 / 1460 500 / 500
Other:
Number of approximated MODERATE 1
amounts of urine
Laboratory Results
04/22/24 05:23
04/22/24 05:23
Review of Systems
-
Constitutional: No Symptoms
Respiratory: No Symptoms
Cardiac: No Symptoms
Abdomen/GI: No Symptoms
: Difficulty Voiding
Neurological: No Symptoms
Physical Exam
-
General - well nourished, no acute distress
Abdomen - soft, non-tender
Genitalia - normal with Garrett draining clear urine
Skin - warm & dry with no rash
--- NOTE | 2024-04-23 10:18 | W.PN.HOSP.TC ---
Today's Communication/Plan
-
possible dc in am
Assessment / Plan
Assessment / Plan
Physical Exam
General: Well Developed, Well Nourished and Comfortable
HEENT: No Ptosis, Nose Appears Normal and Ears Appear Normal
Respiratory: Clear
Cardiac: S1/S2 and Regular Rhythm
GI: Soft, Non Tender and Non Distended. Mild left CV tenderness.
Musculoskeletal: No Clubbing, No Cyanosis and No Edema
Skin: Warm and Dry; No Rash or Jaundice
Psych: Calm
38 man with inability to urinate,
# Acute urinary retention 04/22 postplacement of Garrett catheter through cystoscopy. Cystoscopy was done bedside by urology
Urine is clear with no hematuria
Will discharge with Garrett and for outpatient follow-up
Appreciate urology help
# Septic shock/ severe sepsis with lactic acidosis
Secondary to UTI, suspect pyelonephritis
Good clinical improvement in last 24 hours. Afebrile. WBC normalized
No need for more IVF, he is tolerating diet well, stable BP
Changed IV Abx to IV Ampicillin per culture result.
s/p IVF
Renal US no hydronephrosis
c/w Flomax, ABx for now
Appreciate urology & ID help
# Bacteremia with Streptococcus anginosus
repeat blood culture 04/22 no growth,
Tolerating IV Ampicillin
# Primary hTN
Held MINOO due to hypotension
# PRASANTH due to sepsis, hypotension,
Creatinine improved.
# Metabolic acidosis, mild, improving.
# Obesity
BMP 44
# History of ITP. Monitor plts level
He has hematuria
#History of GERD
#DVT prophylaxis
# Patient reported that he was not taking statin therapy anymore
Total time spent to see the patient, examine the patient on the floor, review data and lab results, discuss treatment plan with patient, his partner, nursing staff around 59 minutes
Anticipated Discharge: Within 24 hours
Subjective/Interval History
-
Date of Service: April 23, 2024
Objective Data
-
Vital Signs:
Vital Signs
Temp Pulse Resp BP Pulse Ox
97.5 F 79 18 133/74 99
04/23/24 07:30 04/23/24 07:30 04/23/24 07:30 04/23/24 07:30 04/23/24 07:30
I&O
04/22/24 04/23/24 04/24/24
06:59 06:59 06:59
Intake Total 4626 / 4626 970 / 970
Output Total 1460 / 1460 5300 / 5300
Balance 3166 / 3166 -4330 / -4330
--- NOTE | 2024-04-23 13:28 | W.PN.ID1 ---
Date of Service
Date of Service: April 23, 2024
Today's Communication
See below.
Assessment / Plan
# Complicated UTI, Ucx Strep species
# Strep anginosus bacteremia, source
#Bladder outlet obstruction
-04/22 s/p cystoscopy found to have urethral stricture w/ traumatic false passage anterior to true lumen; s/p dilation, Lal placement
#s/p Severe sepsis
- repeat blood cultures neg to date.
-Replace IV ampicillin with ceftriaxone (d4 abx)
- At time of discharge, transition to Levofloxacin 500mg po qd through 05/03/24.
#Additional Past Medical History:
Hypertension
Hx ITP s/p Rituxan (2021)
Umbilical hernia repair
Class III obesity BMI 45
Chief Complaint
-: UTI and Bacteremia
Subjective / Review of Systems
Feels better with lal in place.
Vital Signs / Physical Exam
Vital Signs
Vital Signs
Temp Pulse Resp BP Pulse Ox
97.5 F 79 18 133/74 99
04/23/24 07:30 04/23/24 07:30 04/23/24 07:30 04/23/24 07:30 04/23/24 07:30
Physical Exam
Constitutional: No Acute Distress
Genito-Urinary: Lal and Clear Urine; Negative Suprapubic Tenderness or CVA Tenderness
Objective Data
Lab Data
Lab Results
04/22/24 05:23
04/22/24 05:23
Estimated Creat Clear > 125 ml/min 04/22/24 05:23
Lactic Acid 4.5 mmol/L (0.7-2.0) H* 04/21/24 07:45
Total Bilirubin 0.7 mg/dl (0.2-1.3) 04/20/24 22:19
AST 27 U/L (17-59) 04/20/24 22:19
ALT 31 U/L (0-50) 04/20/24 22:19
Alkaline Phosphatase 101 U/L (38-126) 04/20/24 22:19
Most recent labs reviewed.
Micro Results:
04/20/24 21:21 Blood Culture - Preliminary
Blood/Venous Streptococcus anginosus
Gram Stain - Final
04/20/24 21:21 Blood Culture - Preliminary
Blood/Venous Streptococcus anginosus
Gram Stain - Final
04/21/24 11:58 Urine Culture - Final
Urine Streptococcus species
04/23/24 06:44 Blood Culture - Pending
Blood/Venous
04/22/24 05:23 Blood Culture - Preliminary
Blood/Venous No Growth in 24 hours- Final report to follow
04/21/24 Renal US: Right kidney overall slightly larger in size than left kidney. No findings to confirm renal mass, calculus or collecting system dilatation bilaterally.
Care Review
Plan reviewed with: Physician (Dr. Escobar)
[2024-04-23] MEDS: STERILE WATER FOR INJECTION 20 ML IV (14:16)
[2024-04-23] MEDS: ROCEPHIN 2000 MG IV (14:16)
[2024-04-23 15:15] VITALS: BP 128/70
[2024-04-23 19:45] VITALS: BP 121/66
[2024-04-23 23:26] VITALS: BP 121/76
[2024-04-24 03:51] VITALS: BP 112/64
[2024-04-24 07:00] VITALS: BP 124/72
[2024-04-24] MEDS: FLOMAX 0.400000000000000022 MG PO (08:26)
[2024-04-24] MEDS: PROTONIX 40 MG PO (08:26)
--- NOTE | 2024-04-24 10:08 | CM ---
Patient seen at bedside, Patient anticipates that he has no needs at discharge. Patient is anticipating discharge today and indicated that he has a ride home. CM will continue to follow for discharge planning needs.
Plan home with no needs anticipated.
--- NOTE | 2024-04-24 10:54 | W.DCSUMMARY ---
Discharge Summary
Discharge Data
Date of Admission: 04/20/24
Date of Discharge: 04/24/24
-
Pending Results: No
Hospital Course
38 years old male who presented with increasing lower abdominal, bilateral flank and back pain. Inability to urinate. Patient reported difficulty urination at times in the past. Patient was found to have leukocytosis, fever, lactic acidosis.
Patient was diagnosed with urinary tract infection. He met the criteria of sepsis. Bladder scan showed residual urine volume of significant amount around 800 mL. Attempts at Garrett catheter placement were unsuccessful. Patient was given diazepam
and tamsulosin. Patient was evaluated by urologist. Patient was initially able to pass urine. He did have traumatic hematuria in the beginning. Later his urine became clear and urology wanted to do cystoscopy in the outpatient setting after
treating his urinary tract infection. He later on developed acute urinary retention and urology did a bedside cystoscopy with findings of urethral stricture/traumatic false passage anterior to the true lumen. Patient had dilation and Garrett
placement by urologist. Blood culture came back positive for streptococcal anginosus. Patient was followed by infectious diseases [employer] database consultant. He was given intravenous antibiotic. Patient improved significantly. He was able to ambulate and
tolerated diet. He did not have recurrent fever. Leukocytosis had resolved. He had mild drop in hemoglobin diagnosed with acute blood loss anemia secondary to hematuria. Repeat blood culture did not show any growth. Infectious diseases doctor
recommended to continue oral antibiotic upon discharge through May 03. Patient was discharged on Levaquin. He was given counseled regarding potential side effects including tendinitis, patient verbalized understanding. Patient remained
hemodynamic stable and was discharged home in a stable condition to follow-up with urology in the outpatient setting. Patient was discharged with Garrett catheter.
Physical Exam
General: Well Developed, Well Nourished and Comfortable
HEENT: No Ptosis, Nose Appears Normal and Ears Appear Normal
Respiratory: Clear
Cardiac: S1/S2 and Regular Rhythm
GI: Soft, Non Tender and Non Distended. No CV tenderness.
: Garrett, no hematuria.
Musculoskeletal: No Clubbing, No Cyanosis and No Edema
Skin: Warm and Dry; No Rash or Jaundice
Psych: Calm, intact judgment
Total discharge time spent to see the patient, examine the patient on the floor, review data and lab results, discuss discharge plan with patient, nursing staff around 65 minutes
Discharge Plan
-
Patient Disposition: Home (Routine Discharge)
Discharge Diagnosis/Procedures: -Complicated urinary tract infection
-Streptococcal anginosus bacteremia/ severe sepsis: source genitourinary.
-Bladder outlet obstruction : ( 04/22) s/p cystoscopy found to have urethral stricture with traumatic false passage anterior to true lumen; s/p dilation, Garrett placement.
You were seen by urologist and infectious disease consultants. You are discharged on Levaquin. Potential side effect of Levaquin includes tendinitis. If you develop muscle/joint pain. You will need to stop Levaquin and call your primary care
doctor for replacement.
Diet: As tolerated
Referrals:
Sahil Downs MD [Family Provider] - in one to two weeks
Eliceo Quispe MD [Active] - in one to two weeks
Prescriptions:
New
tamsulosin 0.4 mg Capsule
0.4 mg PO DAILY Qty: 30 0RF
levofloxacin 500 mg tablet
500 mg PO DAILY Qty: 7 0RF
Continued
lisinopril [Zestril] 10 MG tablet
10 mg PO DAILY
omeprazole 20 mg Capsule,Delayed Release(Dr/Ec)
40 mg PO DAILY PRN (Reason: acid reflux)
Discharge Orders:
Discharge Patient (As Directed); Ordered 04/24/24
Ordered By: Fitz Escobar
Discharge Date and Time
Print Language: URDU
[2024-04-24 11:00] VITALS: BP 133/76
--- NOTE | 2024-04-24 11:11 | W.PN.ID1 ---
Date of Service
Date of Service: April 24, 2024
Today's Communication
Can transition to Levofloxacin 500mg po qd through 05/03/24.
Assessment / Plan
# Complicated UTI, Ucx Strep species
# Strep anginosus bacteremia, source
#Bladder outlet obstruction /urethral stricture
-04/22 s/p cystoscopy found to have urethral stricture w/ traumatic false passage anterior to true lumen; s/p dilation, Garrett placement
#s/p Severe sepsis
- repeat blood cultures neg to date.
- On ceftriaxone (d5 abx)
- Can transition to Levofloxacin 500mg po qd through 05/03/24.
QTc normal
-Follow-up with Urology.
#Additional Past Medical History:
Hypertension
Hx ITP s/p Rituxan (2021)
Umbilical hernia repair
Class III obesity BMI 45
Chief Complaint
-: UTI and Bacteremia
Subjective / Review of Systems
Feels well.
Vital Signs / Physical Exam
Vital Signs
Vital Signs
Temp Pulse Resp BP Pulse Ox
98.2 F 79 16 124/72 97
04/24/24 07:00 04/24/24 07:00 04/24/24 07:00 04/24/24 07:00 04/24/24 07:00
Physical Exam
Constitutional: No Acute Distress and Comfortable
Genito-Urinary: Garrett and Clear Urine
Objective Data
Lab Data
Lab Results
04/22/24 05:23
04/22/24 05:23
Estimated Creat Clear > 125 ml/min 04/22/24 05:23
Lactic Acid 4.5 mmol/L (0.7-2.0) H* 04/21/24 07:45
Total Bilirubin 0.7 mg/dl (0.2-1.3) 04/20/24 22:19
AST 27 U/L (17-59) 04/20/24 22:19
ALT 31 U/L (0-50) 04/20/24 22:19
Alkaline Phosphatase 101 U/L (38-126) 04/20/24 22:19
Most recent labs reviewed.
Micro Results:
04/23/24 06:44 Blood Culture - Preliminary
Blood/Venous No Growth in 24 hours- Final report to follow
04/22/24 05:23 Blood Culture - Preliminary
Blood/Venous No Growth in 48 hours- Final report to follow
04/20/24 21:21 Blood Culture - Final
Blood/Venous Streptococcus anginosus
Gram Stain - Final
04/20/24 21:21 Blood Culture - Final
Blood/Venous Streptococcus anginosus
Gram Stain - Final
04/21/24 11:58 Urine Culture - Final
Urine Streptococcus species
04/21/24 Renal US: Right kidney overall slightly larger in size than left kidney. No findings to confirm renal mass, calculus or collecting system dilatation bilaterally.
Care Review
Plan reviewed with: Physician (Dr. Escobar)
[2024-04-24] MEDS: ROCEPHIN 2000 MG IV (12:03)
[2024-04-24] MEDS: STERILE WATER FOR INJECTION 20 ML IV (12:03)
== END 2024-04-24 13:16 | disposition home or self-care (01) | DRG 871 ==
LOC: 3 WEST ACU 23:22
PROVIDERS: Nurse Practitioner Gerontology; ADMITTING PHYSICIAN Internal Medicine; ATTENDING PHYSICIAN Internal Medicine; CONSULT PHYSICIAN Internal Medicine Infectious Disease; CONSULT PHYSICIAN Specialist; EMERGENCY PHYSICIAN Emergency Medicine; FAMILY PHYSICIAN Family Medicine
DX: A41.9 Sepsis, unspecified organism (principal); R65.21 Severe sepsis with septic shock; N39.0 Urinary tract infection, site not specified; E87.20 Acidosis, unspecified; Z68.41 Body mass index [BMI] 40.0-44.9, adult; N17.9 Acute kidney failure, unspecified; D62 Acute posthemorrhagic anemia; N32.0 Bladder-neck obstruction; I10 Essential (primary) hypertension; K21.9 Gastro-esophageal reflux disease without esophagitis; E66.01 Morbid (severe) obesity due to excess calories
CPT/HCPCS: 76775; 80048; 80053; 81003; 81015; 82962; 83605; 85025; 85027; 87040; 87077; 87086; 87186; 87205; 93005; 96374; 99285

== ENCOUNTER 2025-11-09 06:11 | Emergency (ER) | payer OTHER, SELFPAY ==
[2025-11-09 06:19] VITALS: BP 150/104
[2025-11-09 06:27] VITALS: BMI 40.1
--- NOTE | 2025-11-09 06:31 | ED.GENMED ---
History of Present Illness
General
Chief Complaint: Skin Problem
Time Seen by Provider: 11/09/25 06:23
History of Present Illness
History of Present Illness:
40-year-old male with history of hypertension and former tobacco use presents to the emergency department for evaluation of left thoracic back and left chest discomfort associated with a rash for the past 3 days. Rash developed within the past 24
hours. Denies any fevers or chills. No history of similar. No exertional chest pain
Past History
Past History
ED Past Medical History: GERD and HTN
ED Past Surgical History: Orthopedic and Other (Umbilical hernia repair)
Social History
Tobacco: Non-smoker
Alcohol: None
Drug: None
Review of Systems
Review of Systems
Allergies reviewed?: Yes
All Other Systems: ROS reviewed and negative except as documented in HPI and ROS
Phy Exam
Physical Exam
Physical Exam:
GEN: Well appearing, NAD, WDWN
HEENT: Oral mucosa moist, no scleral icterus
Cardiac: Regular rate and rhythm, no murmur
Lung: No respiratory distress, no tachypnea
MSK: No gross deformity or injuries
Skin: Good color, no pallor or jaundice, vesicular rash in a dermatomal pattern to the left thoracic back extending to the left chest wall
Neuro: AO x3, moves all extremities freely
Psych: Calm, cooperative
Sepsis
Sepsis Screening
Sepsis Assessment: Sepsis Ruled Out
Sepsis Screen
Sepsis Screen: Sepsis Ruled Out
Date: 11/09/25
Time: 13:39
Course
Vital Signs
Initial and Last Documented VS:
Initial Vital Signs
Temp Pulse Resp BP Pulse Ox
97.5 F 86 24 150/104 100
11/09/25 06:19 11/09/25 06:19 11/09/25 06:19 11/09/25 06:19 11/09/25 06:19
Last Documented Vital Signs
Temp Pulse Resp BP Pulse Ox
97.5 F 86 24 150/104 100
11/09/25 06:19 11/09/25 06:19 11/09/25 06:19 11/09/25 06:19 11/09/25 06:34
MDM/Problems Addressed
MDM/Problems Addressed:
Rash classic for herpes zoster, will start antiviral therapy and gabapentin for pain, educated patient on return parameters and potential risk of postherpetic neuralgia
*Pulse Oximetry
SaO2: 100
Oxygen Mode of Delivery: Room air
Patient hypoxic: no
*Critical Care Note
Total Time (30-74mins, 75-104mins- exclusive of procedures): Not Applicable
ED Attending Note
-
Portions of this chart may have been created with voice recognition software.� Occasional wrong word or��sound alike� substitutions may have occurred due to the inherent limitations of voice recognition software.
Discharge Plan
Departure
Patient Disposition: Home (Routine Discharge)
Date of Disposition: 11/09/25
Time of Disposition: 06:33
Patient with high blood pressure during this ER visit?: Yes
Discharge Problem:
Herpes zoster
Instructions: Shingles
Prescriptions:
New
valacyclovir 1 gram tablet
1,000 mg PO Q8H 7 Days Qty: 21 0RF
gabapentin 300 mg capsule
300 mg PO TID Qty: 30 0RF
No Action
lisinopril [Zestril] 10 MG tablet
10 mg PO DAILY
omeprazole 20 mg Capsule,Delayed Release(Dr/Ec)
40 mg PO DAILY PRN (Reason: acid reflux)
tamsulosin 0.4 mg Capsule
0.4 mg PO DAILY Qty: 30 0RF
levofloxacin 500 mg tablet
500 mg PO DAILY Qty: 7 0RF
Activity Restrictions/Additional Instructions:
Return to the ER if you develop severe headache or fever
Interventions
Interventions:
*Risk Screen - Suicide Last Done: 11/09/25 06:19
*General Assessment Last Done: 11/09/25 06:25
*Neglect/Abuse Screening Last Done: 11/09/25 06:19
*ED COVID-19 Vaccine History Last Done: 11/09/25 06:25
*ED Influenza Vaccine History Last Done: 11/09/25 06:25
[facility] Fall Risk Assessment Tool Last Done: 11/09/25 06:25
*Nursing Disposition Last Done: 11/09/25 06:40
ED-Skin Assessment Last Done: 11/09/25 06:25
Discharge Date and Time
Discharge Date/Time: 11/09/25 06:42
Print Language: [place]
== END 2025-11-09 06:42 | disposition home or self-care (01) ==
LOC: EMR 06:11
PROVIDERS: EMERGENCY PHYSICIAN Emergency Medicine; FAMILY PHYSICIAN Physician Assistant
DX: B02.9 Zoster without complications (principal); I10 Essential (primary) hypertension
CPT/HCPCS: 99283